=== PATIENT | male | born 1980 | race Caucasian/White ===

== ENCOUNTER 2019-10-07 21:03 | Emergency (ER) | payer BC, SELFPAY ==
[2019-10-07 21:29] VITALS: BP 139/86; PULSE 66; RESP 18; TEMP 37; O2SAT 100
--- NOTE | 2019-10-07 23:23 | ED_ITS ---
HPI - Animal Bite General: Chief Complaint: Animal Bite Stated Complaint: snake bite Time Seen by Provider: 10/07/19 23:18 History of Present Illness: HPI narrative: That he is moving to catch into the house tonight and heard a noise and felt pain to his right ankle area. Said his leg bled little bit and that it started to swell. Said he has 2 bite wilder to his right ankle. complaint: animal bite (Possible snake bite) Onset (ago): hour(s) Animal: snake (Possible) Mechanism: bite Location - Extremities: Right: lower leg Pain description: sharp Severity scale (1-10): 3 Context: unprovoked Associated symptoms: Reports no associated symptoms; Deny chills, fever(s) or headache(s) Review of Systems Const: Denies: fever(s), chills or body aches Eyes: Denies: change in vision or blurry vision ENMT: Denies: throat pain or nasal congestion Card: Denies: chest pain or dyspnea on exertion Resp: Denies: dyspnea, productive cough or non-productive cough GI: Denies: abdominal pain, nausea or vomiting : Denies: difficulty urinating Musc: Denies: extremity pain Skin/Breast: Reports: other (She has a bite to his right ankle area about 2 inches above the ankle); Denies: rash Neuro: Denies: headache(s) Psych: Denies: anxiety or depression Bayron/Lymph: Denies: easy bruising PFS ED PFSH: Social History (Updated 06/06/19 @ 17:47 by Michaelle Lackey LPN) Smoking and tobacco status: current every day smoker Alcohol intake: current Physical Exam Const: COMMON NORMALS: no acute distress, average body habitus and patient or iented x3 HENMT: COMMON NORMALS: normocephalic HEAD & SCALP: normal to inspection and normocephalic FACE & SINUS: normal facial exam Eye: COMMON NORMALS: conjunctivae normal GENERAL EYE: appearance normal, both eyes and all related structures CONJUNCTIVA: Yes conjunctivae normal Neck/C-Spine: COMMON NORMALS: no JVD Chest: COMMONS NORMALS: normal inspection of the chest Resp: COMMON NORMALS: normal respiratory effort and clear to auscultation bilaterally AUSCULTATION: clear to auscultation bilaterally Cardio: COMMON NORMALS: no JVD, regular rate and regular rhythm RATE: regular rate RHYTHM: regular rhythm GI: COMMON NORMALS: Normal to inspection, nondistended, normoactive bowel sounds present Extremity: COMMON NORMALS: normal to inspection and full ROM Neuro: COMMON NORMALS: patient oriented x3 Skin: NARRATIVE SKIN EXAM: No swelling noted to the foot does have one area that looks like a scratch that has little bit of blood around it and then has little petechiae about an inch and half over he does have 2 spots of blood on his sock there is no swelling I noted Course Vital Signs: Vital signs: Vital Signs Temperature 98.6 F 10/07/19 21:29 Pulse Rate 66 10/07/19 21:29 Respiratory Rate 18 10/07/19 21:29 Blood Pressure 139/86 10/07/19 21:29 Pulse Oximetry 100 10/07/19 21:29 Discharge Plan Discharge Patient Disposition: Home, Self-Care Clinical Impression: Bite by animal Condition: Stable Prescriptions: New Keflex 500 mg capsule 500 mg PO TID 7 Days Qty: 21 RF: 0 Discharge Orders: Discharge Order (Routine); Ordered 10/07/19 Ordered By: Anuel Boswell Discharge Diet: Usual diet Discharge Activity: Increase activity as tolerated Patient Instructions: Snake Bite (ED) Activity Restrictions/Additional Instructions: Follow-up with medical provider as directed. Take medications as prescribed. Return to the ER or your medical provider if condition worsens. Please read and understand discharge instructions. If any questions ask please. 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
[2019-10-07] MEDS: TRAMadol 50 mg Tablet PO (23:49)
[2019-10-07] MEDS: predniSONE 20 mg Tablet 60 MG PO (23:50)
[2019-10-07] MEDS: cephALEXin 500 mg Capsule PO (23:50)
[2019-10-07] MEDS: tetanus-dipt-pertussis 0.5 mL SDV IM (23:55)
== END 2019-10-07 23:59 | disposition home or self-care (01) ==
PROVIDERS: Emergency Provider Nurse Practitioner Family
DX: S90.571A Other superficial bite of ankle, right ankle, initial encounter (principal); W64.XXXA Exposure to other animate mechanical forces, initial encounter; F17.210 Nicotine dependence, cigarettes, uncomplicated; Z23 Encounter for immunization
CPT/HCPCS: 12345; 90471; 90715; 99281; 99283; J7512

== ENCOUNTER → 2024-05-19 14:35 | Outpatient (BNVA) | payer SELFPAY | PROVIDERS: Visit Provider Nurse Practitioner Family | DX: R35.1 Nocturia (principal); Z13.6 Encounter for screening for cardiovascular disorders | CPT/HCPCS: 80053; 80061; 83036; 84153 ==